=== PATIENT | male | born 1995 | race Caucasian/White ===

== ENCOUNTER 2019-01-10 22:30 | Emergency (ER) | payer SELFPAY | END 2019-01-11 06:43 | disposition left against medical advice (07) | LOC: FTE 22:30 | DX: Z53.21 Procedure and treatment not carried out due to patient leaving prior to being seen by health care provider (principal) ==

== ENCOUNTER 2019-01-11 12:52 | Emergency (ER) | payer SELFPAY ==
[2019-01-11] MEDS: ONDANSETRON (ODT) 4 MG TAB ODT (14:07)
[2019-01-11] MEDS: HYDROCODONE/APAP (5/325) TAB PO (14:07)
== END 2019-01-11 15:00 | disposition home or self-care (01) ==
LOC: FTE 12:52
DX: S62.336A Displaced fracture of neck of fifth metacarpal bone, right hand, initial encounter for closed fracture (principal); F17.210 Nicotine dependence, cigarettes, uncomplicated; W01.0XXA Fall on same level from slipping, tripping and stumbling without subsequent striking against object, initial encounter; Y92.89 Other specified places as the place of occurrence of the external cause
CPT/HCPCS: 29125; 73110-RT; 73130-RT; 99283-25